=== PATIENT | female | born 1980 | race Caucasian/White ===

== ENCOUNTER 2019-10-30 22:34 | Emergency (ER) | payer BC ==
[~2019-10-30] VITALS: Ht 175.3 cm; Wt 89.4 kg
[~2019-10-30 22:34] MED LIST: BCP; HYDACE5 PO; IBUP800 PO; Ultram50 MG PO
== END 2019-10-31 00:33 | disposition home or self-care (01) ==
LOC: ER 22:34
DX: M25.551 Pain in right hip (principal); Z88.6 Allergy status to analgesic agent
CPT/HCPCS: 73502; 99283-25

== ENCOUNTER 2019-11-21 22:18 | Emergency (ER) | payer OTHER, BC ==
[~2019-11-21] VITALS: Ht 175.3 cm; Wt 88.9 kg
[2019-11-23 09:07] LABS: HCV ANTIBODY <0.1 (0.0-0.9)
[2019-11-23 17:06] LABS: HIV SCREEN 4TH GENERATION WRFX Non Reactive (Non Reactive)
== END 2019-11-22 00:21 | disposition home or self-care (01) ==
LOC: ER 22:18
PROVIDERS: Physician Assistant
DX: Z77.21 Contact with and (suspected) exposure to potentially hazardous body fluids (principal); Z23 Encounter for immunization; Z88.6 Allergy status to analgesic agent
CPT/HCPCS: 36415; 84460; 86317; 86703; 86803; 87340; 87389; 90471; 90714; 99283

== ENCOUNTER 2020-02-10 20:51 | Emergency (ER) | payer BC ==
[~2020-02-10] VITALS: Ht 175.3 cm; Wt 88.5 kg
[2020-02-10] MEDS ORDERED: Microgestin1 EAC1 PO (21:16)
== END 2020-02-10 21:53 | disposition home or self-care (01) ==
LOC: ER 20:51
DX: S01.511A Laceration without foreign body of lip, initial encounter (principal); Z88.6 Allergy status to analgesic agent; Y04.0XXA Assault by unarmed brawl or fight, initial encounter
CPT/HCPCS: 12011; 99283-25

== ENCOUNTER 2023-01-09 06:07 | Day surgery (SDC) | payer OTHER ==
[~2023-01-09] VITALS: Ht 175.3 cm; Wt 101.7 kg
[~2023-01-09 06:07] MED LIST changes: +Microgestin1 EAC1 PO
--- NOTE | 2023-01-09 08:48 | NUR ---
01/09/23 0848 Fiona Ray PT IN RECLINER WITH CALL LIGHT WITHIN REACH. PT EATING COOKIES AND DRINKING APPLE JUICE. PT STATED WHEN CAN I GET DRESS. SITTING BY HER. PT STATED SHE FELT GREAT WITH NO PAIN AND APPLE JUICE WAS TH EBEST IN THE WORLD.
== END 2023-01-09 08:35 | disposition home or self-care (01) ==
LOC: ORSCSDS 06:07
PROVIDERS: Orthopaedic Surgery
PROC: 01N54ZZ Release Median Nerve, Percutaneous Endoscopic Approach (ICD-10-PCS; principal; 2023-01-09 07:30)
DX: G56.03 Carpal tunnel syndrome, bilateral upper limbs (principal); K21.9 Gastro-esophageal reflux disease without esophagitis; F41.9 Anxiety disorder, unspecified
CPT/HCPCS: J2250; J2704; J3010

== ENCOUNTER 2025-05-04 07:18 | Day surgery (SDC) | payer OTHER ==
[~2025-05-04] VITALS: Ht 172.7 cm; Wt 102.3 kg
[2025-05-04] VITALS (15 sets, daily range): BP systolic 97–119; BP diastolic 60–91
--- NOTE | 2025-05-04 08:14 | NUR ---
05/04/25 0814 Mina Benton CONFIRMED AND REVIEWED H&P, MEDCICATIONS, ALLERGIES, MEDICAL HISTORY, RESPIRATORY HISTORY, VITAL SIGNS, 3-LEAD EKG, CONSENTS, AND PHYSICIAN ORDERS. PATIENT CONFIRMS NPO STATUS AND AGREES WITH SCHEDULED PROCEDURE. MONITOR INTACT WITH CONTINUOUS PULSE OXIMETRY, CAPNOGRAPHY, 3-LEAD EKG, INTERMITTENT BP. SUPPLEMENTAL O2 TO BE TITRATED THROUGHOUT PROCEDURE TO MAINTAIN O2 SATURATION ABOVE 90%. PATIENT DETERMINED TO BE ASA APPROPRIATE FOR PROPOFOL SEDATION PRIOR TO START OF PROCEDURE BY DR. MARTINEZ
== END 2025-05-04 23:00 | disposition home or self-care (01) ==
LOC: ORSCMMR 07:18 → ORD 08:30 → ORSCMMR 23:00
PROVIDERS: Internal Medicine Gastroenterology
PROC: 0DBK8ZX Excision of Ascending Colon, Via Natural or Artificial Opening Endoscopic, Diagnostic (ICD-10-PCS; principal; 2025-05-04 08:30)
PROC: 0DBM8ZX Excision of Descending Colon, Via Natural or Artificial Opening Endoscopic, Diagnostic (ICD-10-PCS; principal; 2025-05-04 08:30)
PROC: 0DBN8ZX Excision of Sigmoid Colon, Via Natural or Artificial Opening Endoscopic, Diagnostic (ICD-10-PCS; principal; 2025-05-04 08:30)
DX: Z12.11 Encounter for screening for malignant neoplasm of colon (principal); D12.2 Benign neoplasm of ascending colon; K63.5 Polyp of colon; Z68.35 Body mass index [BMI] 35.0-35.9, adult
CPT/HCPCS: 88305; J2704; J7120